=== PATIENT | female | born 2000 | race African-American/Black ===

== ENCOUNTER 2022-01-16 14:21 | Emergency (ER) | payer MEDICAID ==
[~2022-01-16] VITALS: Ht 157.5 cm; Wt 55.2 kg
[2022-01-16 14:30] VITALS: BP 109/59
[2022-01-16] MEDS ORDERED: ONDA4TAB12 PO (15:06)
--- NOTE | 2022-01-16 15:06 | PHYS DOC ---
Past Medical History Past Surgical History: No Surgical History Smoking Status: Never Smoker Alcohol Use: None General Adult EDM: Chief Complaint: HEADACHE HPI: HPI: Patient is a 21 year old female who presents to the ED today with multiple complaints. Patient states she has had a migraine headache intermittently since this morning. She states she is also out of her Zofran for "acid reflux". She also states she has "bladder stones" and is scheduled for surgery in 2 weeks to remove them. She states she has 6 out of 10 left lower quadrant abdominal pain from "bladder stones". Denies any fever. Denies any hematuria. Denies this being the worst headache in her life. She states her migraine headache today is consistent with her normal migraines. She states she took ibuprofen and it is getting better. Review of Systems: Review of Systems: Constitutional: Denies fever or chills. [] Eyes: Denies change in visual acuity. [] HENT: Denies nasal congestion or sore throat. [] Respiratory: Denies cough or shortness of breath. [] Cardiovascular: Denies chest pain or edema. [] GI: Denies abdominal pain, nausea, vomiting, bloody stools or diarrhea. [] : Reports "bladder stones" denies dysuria. [] Musculoskeletal: Denies back pain or joint pain. [] Integument: Denies rash. [] Neurologic: Reports migraine headache, denies focal weakness or sensory changes. [] Psychiatric: Denies depression or anxiety. [] Heart Score: C/O Chest Pain: N/A Risk Factors: Risk Factors: DM, Current or recent (<one month) smoker, HTN, HLP, family history of CAD, obesity. Risk Scores: Score 0 - 3: 2.5% MACE over next 6 weeks - Discharge Home Score 4 - 6: 20.3% MACE over next 6 weeks - Admit for Clinical Observation Score 7 - 10: 72.7% MACE over next 6 weeks - Early Invasive Strategies Allergies: Allergies: Allergies Coded Allergies Type Severity Reaction Last Updated Verified No Known Drug Allergies 01/16/22 No Physical Exam: PE: Constitutional: Well developed, well nourished, no acute distress, non-toxic appearance. [] HENT: Normocephalic, atraumatic, bilateral external ears normal, oropharynx moist, no oral exudates, nose normal. [] Eyes: PERRLA, EOMI, conjunctiva normal, no discharge. [] Neck: Normal range of motion, no tenderness, supple, no stridor. [] Cardiovascular:Heart rate regular rhythm, no murmur [] Lungs & Thorax: Bilateral breath sounds clear to auscultation [] Abdomen: Bowel sounds normal, soft, no tenderness, no masses, no pulsatile masses. [] Skin: Warm, dry, no erythema, no rash. [] Back: No tenderness, no CVA tenderness. [] Extremities: No tenderness, no cyanosis, no clubbing, ROM intact, no edema. [] Neurologic: Alert and oriented X 3, normal motor function, normal sensory function, no focal deficits noted. Cranial nerves II through XII intact Psychologic: Affect normal, judgement normal, mood normal. [] Current Patient Data: Labs: Laboratory Tests Test 01/16/22 14:40 POC Urine HCG, Qualitative Hcg negative (Negative) Vital Signs: Vital Signs Date Time Temp Pulse Resp B/P (MAP) Pulse Ox O2 Delivery O2 Flow Rate FiO2 01/16/22 14:30 98.6 79 14 109/59 (76) 96 98.6 EKG: EKG: [] Radiology/Procedures: Radiology/Procedures: []PROCEDURE: CT ABDOMEN PELVIS WO CONTRAST Exam: CT of abdomen and pelvis without contrast INDICATION: Left lower quadrant pain, Back pain TECHNIQUE: Sequential axial images through the abdomen and pelvis obtained without IV contrast. Sagittal and coronal reformatted images were reconstructed from the axial data and reviewed. Exposure: One or more of the following in the visualized dose reduction techniques were utilized for this examination: 1. Automated exposure control 2. Adjustment of the MA and/or KV according to patient size 3. Use of iterative of reconstructive technique Comparisons: None FINDINGS: Heart size is normal. No pericardial effusion. Visualized lung bases are clear. No pleural effusion. Evaluation solid organs limited secondary to noncontrast technique. Liver, spleen, pancreas, gallbladder and adrenals are unremarkable. No perinephric inflammation or hydronephrosis. No renal or ureteral calculi are identified. Bladder is decompressed not well evaluated. Uterus is not enlarged. No abnormal adnexal mass. Large and small bowel are unremarkable. Appendix is normal. No free intra- abdominal air or fluid. No obstruction. Abdominal aorta has normal course and caliber. No enlarged intra-abdominal lymph nodes are identified. No suspicious osseous lesions or acute fractures. IMPRESSION: No acute process identified within the abdomen or pelvis. Electronically signed by: Cristiano Donis MD (01/16/2022 3:43 PM) [facility] DICTATED and SIGNED BY: CRISTIANO DONIS MD DATE: 01/16/22 1535 Course & Med Decision Making: Course & Med Decision Making Pertinent Labs and Imaging studies reviewed. (See chart for details) This a 21-year-old female patient presenting to the ED today with multiple complaints. Patient is complaining of a migraine headache that is improving on ibuprofen. She is also complaining of running out of Zofran, Rx will be given. She is also complaining of left lower quadrant abdominal pain from a "kidney stones". She states she is scheduled to have surgery in 2 weeks to remove them. Negative urine hCG. UA negative for infection. CT of the abdomen and pelvis is negative. No kidney stones noted on the CT. Discharge to home. Follow-up with PCP in 1 week Elizabeth Disclaimer: Elizabeth Disclaimer: This electronic medical record was generated, in whole or in part, using a voice recognition dictation system. Departure Departure Impression: Primary Impression: Migraine headache Qualified Codes: G43.909 - Migraine, unspecified, not intractable, without status migrainosus Additional Impressions: Left lower quadrant pain Nausea Disposition: 01 HOME / SELF CARE / HOMELESS Condition: STABLE Referrals: NO PCP (PCP) Patient Instructions: Abdominal Pain, Migraine Headache, [id number] Additional Instructions: You were evaluated in the emergency room, we did a CT of your abdomen and pelvis, no kidney stones were noted. No acute findings were noted in your abdomen or pelvis. We sent zofran prescription to your pharmacy. Follow-up with your doctor in 1 week Scripts Ondansetron (ONDANSETRON ODT) 4 Mg Tab.rapdis 1 TAB PO PRN Q6-8HRS, #30 TAB Prov: MAHENDRA JACK WIND OPERATIONS MANAGER 01/16/22 MAHENDRA JACK WIND OPERATIONS MANAGER January 16, 2022 15:06
[2022-01-16 15:07] LABS: BACTERIA,URINE 0 /HPF (0-FEW); WBC,URINE 0 /HPF (0-4)
--- NOTE | 2022-01-16 15:45 | RAD ---
Exam: CT of abdomen and pelvis without contrast INDICATION: Left lower quadrant pain, Back pain TECHNIQUE: Sequential axial images through the abdomen and pelvis obtained without IV contrast. Sagit khushbu and coronal reformatted images were reconstructed from the axial data and reviewed. Exposure: One or more of the following in the visualized dose reduction techniques were utilized for this examination: 1. Automated exposure control 2. Adjustment of the MA and/or KV according to patient size 3. Use of iterative of reconstructive technique Comparisons: None FINDINGS: Heart size is normal. No pericardial effusion. Visualized lung bases are clear. No pleural effusion. Evaluation solid organs limited secondary to noncontrast technique. Liver, spleen, pancreas, gallbladder and adrenals are unremarkable. No perinephric inflammation or hydronephrosis. No renal or ureteral calculi are identified. Bladder is decompressed not well evaluated. Uterus is not enlarged. No abnormal adnexal mass. Large and small bowel are unremarkable. Appendix is normal. No free intra-abdominal air or fluid. No obstruction. Abdominal aorta has normal course and caliber. No enlarged intra-abdominal lymph nodes are identified. No suspicious osseous lesions or acute fractures. IMPRESSION: No acute process identified within the abdomen or pelvis. Electronically signed by: Marina Lester MD (01/16/2022 3:43 PM) [facility]
== END 2022-01-16 15:55 | disposition home or self-care (01) ==
LOC: ER 14:21
DX: G43.909 Migraine, unspecified, not intractable, without status migrainosus (principal); R10.32 Left lower quadrant pain; R11.0 Nausea
CPT/HCPCS: 74176; 81001; 81025; 99284-25

== ENCOUNTER 2022-02-11 03:20 | Emergency (ER) | payer MEDICAID ==
[~2022-02-11] VITALS: Ht 157.5 cm; Wt 54.5 kg
[~2022-02-11 03:20] MED LIST: ONDA4TAB12 PO
[2022-02-11 03:48] LABS: BASO % 0 % (0-3); EOS # 0.1 x10^3/uL (0.0-0.7); EOS % 1 % (0-3); HEMATOCRIT 42.4 % (36.0-47.0); HEMOGLOBIN 14.2 g/dL (12.0-15.5); LYMPH % 22 % (24-48); MEAN CORPUSCULAR HEMOGLOBIN 31 pg (25-35); MEAN CORPUSCULAR HGB CONC 34 g/dL (31-37); MEAN CORPUSCULAR VOLUME 93 fL (79-100); MONO # 0.4 x10^3/uL (0.0-1.1); MONO % 5 % (0-9); NEUT # 6.5 x10^3/uL (1.8-7.7); NEUT % 72 % (31-73); PLATELET COUNT 324 x10^3/uL (140-400); RED BLOOD COUNT 4.57 x10^6/uL (3.50-5.40); RED CELL DISTRIBUTION WIDTH 15.3 % (11.5-14.5); WHITE BLOOD COUNT 9.1 x10^3/uL (4.0-11.0)
[2022-02-11 03:55] LABS: CALCIUM 9.4 mg/dL (8.5-10.1); CREATININE 0.8 mg/dL (0.6-1.0); GFR 111.8; POTASSIUM 3.7 mmol/L (3.5-5.1)
--- NOTE | 2022-02-11 04:31 | RAD ---
XR CHEST 1V Clinical History: Reason: sob / Spl. Instructions: / History: Technique: AP view of the chest was obtained at 02/11/2022 3:41 AM. Comparison: None. Findings: The cardiomediastinal silhouette is normal. The pulmonary vasculature is normal. The lungs and pleura l margins are clear. Impression: No evidence of an acute cardiopulmonary process. Electronically signed by: Odell Wyman III, MD (02/11/2022 4:29 AM) [facility]
[2022-02-11] MEDS ORDERED: IV RINGERS,LACTATED 1000ML 1,000 ML IV ONE (05:00)
--- NOTE | 2022-02-11 05:20 | EKG ---
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
--- NOTE | 2022-02-11 05:28 | PHYS DOC ---
Past Medical History Past Surgical History: No Surgical History Smoking Status: Current Every Day Smoker Alcohol Use: Occasionally General Adult EDM: Chief Complaint: SHORTNESS OF BREATH HPI: HPI: Patient is a 21 year old female who presents to the emergency department today with concerns for an asthma attack. Patient states she became short of breath while at home. She states she is inhaler but it does not work. Of note patient had several shots of for local tonight. She also drank EN J whiskey. She denies having any chest pain. She denies any hemoptysis. She denies any use of exogenous hormones. She denies any recent trauma or surgeries. She denies any personal history of DVT or PE. She also denies any family history. She denies any unilateral leg swelling. Review of Systems: Review of Systems: Constitutional: Denies fever or chills. [] Eyes: Denies change in visual acuity. [] HENT: Denies nasal congestion or sore throat. [] Respiratory: Denies cough GI: Denies abdominal pain, nausea, vomiting, bloody stools or diarrhea. [] : Denies dysuria. [] Musculoskeletal: Denies back pain or joint pain. [] Integument: Denies rash. [] Neurologic: Denies headache, focal weakness or sensory changes. [] Endocrine: Denies polyuria or polydipsia. [] Lymphatic: Denies swollen glands. [] Psychiatric: Denies depression or anxiety. [] Heart Score: C/O Chest Pain: No Current Medications: Current Medications Medications (Trade) Dose Ordered Sig/Gale Start Time Stop Time Status Last Admin Dose Admin Ringer's Solution 1,000 ml @ 999 mls/hr 1X ONCE 02/11/22 05:00 02/11/22 06:00 02/11/22 04:56 999 MLS/HR Allergies: Allergies: Allergies Coded Allergies Type Severity Reaction Last Updated Verified No Known Drug Allergies 01/16/22 No Physical Exam: PE: Constitutional: Well developed, well nourished, no acute distress, non-toxic appearance. [] HENT: Normocephalic, atraumatic, bilateral external ears normal, oropharynx moist, no oral exudates, nose normal. [] Eyes: PERRLA, EOMI, conjunctiva normal, no discharge. [] Neck: Normal range of motion, no tenderness, supple, no stridor. [] Cardiovascular:Heart rate regular rhythm, no murmur [] Lungs & Thorax: Bilateral breath sounds clear to auscultation no wheezing or tachypnea noted [] Abdomen: Bowel sounds normal, soft, no tenderness, no masses, no pulsatile masses. [] Skin: Warm, dry, no erythema, no rash. [] Back: No tenderness, no CVA tenderness. [] Extremities: No tenderness, no cyanosis, no clubbing, ROM intact, no edema. [] Neurologic: Alert and oriented X 3, normal motor function, normal sensory function, no focal deficits noted. [] Psychologic: Anxious Current Patient Data: Labs: Laboratory Tests Test 02/11/22 03:30 White Blood Count 9.1 x10^3/uL (4.0-11.0) Red Blood Count 4.57 x10^6/uL (3.50-5.40) Hemoglobin 14.2 g/dL (12.0-15.5) Hematocrit 42.4 % (36.0-47.0) Mean Corpuscular Volume 93 fL (79-100) Mean Corpuscular Hemoglobin 31 pg (25-35) Mean Corpuscular Hemoglobin Concent 34 g/dL (31-37) Red Cell Distribution Width 15.3 % (11.5-14.5) H Platelet Count 324 x10^3/uL (140-400) Neutrophils (%) (Auto) 72 % (31-73) Lymphocytes (%) (Auto) 22 % (24-48) L Monocytes (%) (Auto) 5 % (0-9) Eosinophils (%) (Auto) 1 % (0-3) Basophils (%) (Auto) 0 % (0-3) Neutrophils # (Auto) 6.5 x10^3/uL (1.8-7.7) Lymphocytes # (Auto) 2.0 x10^3/uL (1.0-4.8) Monocytes # (Auto) 0.4 x10^3/uL (0.0-1.1) Eosinophils # (Auto) 0.1 x10^3/uL (0.0-0.7) Basophils # (Auto) 0.0 x10^3/uL (0.0-0.2) Sodium Level 143 mmol/L (136-145) Potassium Level 3.7 mmol/L (3.5-5.1) Chloride Level 107 mmol/L (98-107) Carbon Dioxide Level 22 mmol/L (21-32) Anion Gap 14 (6-14) Blood Urea Nitrogen 3 mg/dL (7-20) L Creatinine 0.8 mg/dL (0.6-1.0) Estimated GFR (Cockcroft-Gault) 111.8 Glucose Level 91 mg/dL (70-99) Calcium Level 9.4 mg/dL (8.5-10.1) Troponin I High Sensitivity 5 ng/L (4-50) GT-Kbt-O-Type Natriuretic Peptide 14 pg/mL (0-124) Laboratory Tests 02/11/22 03:30 Laboratory Tests 02/11/22 03:30 Vital Signs: Vital Signs Date Time Temp Pulse Resp B/P (MAP) Pulse Ox O2 Delivery O2 Flow Rate FiO2 02/11/22 04:22 94 20 116/82 (93) 97 Room Air 02/11/22 03:27 97.7 97.7 EKG: EKG: EKG shows normal sinus rhythm with a rate of 101. Intervals and axis are normal. No evidence of ischemia or infarction. EKG reviewed and interpreted by myself. [] Radiology/Procedures: Radiology/Procedures: XR CHEST 1V Clinical History: Reason: sob / Spl. Instructions: / History: Technique: AP view of the chest was obtained at 02/11/2022 3:41 AM. Comparison: None. Findings: The cardiomediastinal silhouette is normal. The pulmonary vasculature is normal. The lungs and pleural margins are clear. Impression: No evidence of an acute cardiopulmonary process. Electronically signed by: Odell Wyman III, MD (02/11/2022 4:29 AM) [facility] Impression: Acute anxiety with panic Acute alcohol intoxication Course & Med Decision Making: Course & Med Decision Making Patient remained hemodynamically stable while in emergency department. She was evaluated at the bedside with a physical exam. Her lungs are clear to auscultation. She has no wheezing. She has no tachypnea. I do not think she is suffering from an asthma exacerbation. Her oxygen saturation is 99%. We did obtain basic labs on her which are unremarkable. Her chest x-ray is clear. EKG showed no evidence of any ischemic changes. I do not not think she is suffering from a PE. Patient was given a liter of fluids with some resolution of her heart rate. I think the patient is likely suffering from anxiety secondary to her acute alcohol intoxication. On reassessment she is feeling better and states she wishes to go home. We will discharge her home have her follow-up with her PCP. Elizabeth Disclaimer: Elizabeth Disclaimer: This electronic medical record was generated, in whole or in part, using a voice recognition dictation system. Departure Departure Impression: Primary Impression: Severe anxiety with panic Additional Impression: Acute alcohol intoxication Disposition: 01 HOME / SELF CARE / HOMELESS Condition: IMPROVED Referrals: NO PCP (PCP) Patient Instructions: Alcohol Intoxication, [id number], Anxiety and Panic Attacks NARCISA RODRIGUES MD February 11, 2022 05:28
[2022-02-11 05:30] VITALS: BP 101/58
== END 2022-02-11 05:35 | disposition home or self-care (01) ==
LOC: ER 03:20
DX: F41.0 Panic disorder [episodic paroxysmal anxiety] (principal); F10.129 Alcohol abuse with intoxication, unspecified; Y90.9 Presence of alcohol in blood, level not specified; F17.200 Nicotine dependence, unspecified, uncomplicated
CPT/HCPCS: 36415; 71045; 80048; 83880; 84484; 85025; 93005; 96360; 99285; J7120